=== PATIENT | male | born 1940 | race Caucasian/White ===

== ENCOUNTER → 2019-03-15 | Outpatient (CLI) | payer MEDICARE, OTHER ==
[~2019-03-15] MED LIST: REGADENOSON 0.4 MG/5 ML DISP.SYRIN. IV ONE
--- NOTE | 2019-03-15 12:52 | PCVCIMAG ---
APPROVED REPORT Study performed: 03/15/2019 08:27:33 EXAM: Comprehensive 2D, Doppler, and color-flow Echocardiogram Patient Location: Echo lab Room #: 2Status: routine BSA: 2.13 HR: 78 bpmBP: 148/88 mmHg Rhythm: NSR Other Information Study Quality: Good Risk Factors: Cardiac Risk Factors: HTN, Smoking history Indications CAD Fatigue S/P CABG 2D Dimensions IVSd: 8.64 (7-11mm)LVOT Diam: 21.55 (18-24mm) LVDd: 47.04 mm PWd: 9.78 (7-11mm)Ascending Ao: 39.06 (22-36mm) LVDs: 36.02 (25-40mm) Left Atrium: 39.09 (27-40mm) Aortic Root: 30.18 mm LV Single Plane 4CH: 58.48 % LV Single Plane 2CH: 59.89 % Biplane EF: 58.7 % Volumes Left Atrial Volume (Systole) Single Plane 4CH: 33.70 mLSingle Plane 2CH: 52.58 mL Biplane LA Volume: 44.00 mLLA ESV Index: 21.00 mL/m2 Aortic Valve AoV Peak Oswaldo.: 1.16 m/s AO Peak Gr.: 5.42 mmHgLVOT Max P.81 mmHg LVOT Max V: 0.98 m/s CHAR Vmax: 3.06 cm2 Mitral Valve E/A Ratio: 0.6 MV Decel. Time: 227.34 ms MV E Max Oswaldo.: 0.48 m/s MV A Oswaldo.: 0.80 m/s IVRT: 62.28 ms TDI E/Lateral E': 6.86E/Medial E': 6.86 Medial E' Oswaldo.: 0.07 m/s Lateral E' Oswaldo.: 0.07 m/s Pulmonary Valve PV Peak Oswaldo.: 1.03 m/sPV Peak Gr.: 4.23 mmHg Pulmonary Vein P Vein S: 0.61 m/sP Vein A: 0.82 m/s P Vein D: 0.29 m/sP Vein A Dur.: 103.8 msec P Vein S/D Ratio: 2.10 Tricuspid Valve TR Peak Oswaldo.: 2.63 m/s TR Peak Gr.: 27.61 mmHg TV Vmax: 0.61 m/sPA Pressure: 35.00 mmHg Left Ventricle The left ventricle is normal size. There is normal LV segmental wall motion. There is normal left ventricular wall thickness. Left ventricular systolic function is normal. The left ventricular ejection fraction is within the normal range. LVEF is 55-60%. Grade I - abnormal relaxation pattern. Right Ventricle Right ventricle is borderline dilated. The right ventricular systolic function is normal. Atria The left atrium size is normal. Right atrium is mildly dilated. Aortic Valve Aortic valve is trileaflet. Mild aortic valve sclerosis. No aortic regurgitation is present. There is no aortic valvular stenosis. Mitral Valve The mitral valve is normal in structure. There is no mitral valve regurgitation noted. No evidence of mitral valve stenosis. Tricuspid Valve The tricuspid valve is normal in structure. Trace to mild tricuspid regurgitation with a PA pressure of 35 mmHg. Mild pulmonary hypertension. Pulmonic Valve The pulmonary valve is normal in structure. Mild pulmonic regurgitation. Great Vessels The aortic root is normal in size. The ascending aorta is mildly dilated in size. Aortic arch is normal in caliber. IVC is normal in size and collapses >50% with inspiration. Pericardium There is no pericardial effusion. There is no pleural effusion. <Conclusion> The left ventricle is normal size. LVEF is 55-60%. Right ventricle is borderline dilated. Aortic valve is trileaflet. Mild aortic valve sclerosis. The mitral valve is normal in structure. The tricuspid valve is normal in structure. Trace to mild tricuspid regurgitation with a PA pressure of 35 mmHg. Mild pulmonary hypertension. The pulmonary valve is normal in structure. Mild pulmonic regurgitation. There is no pericardial effusion.
--- NOTE | 2019-03-17 11:41 | PCVCIMAG ---
APPROVED REPORT Imaging Protocol: Rest Tc-99m/Stress Tc-99m 1 day Study performed: 03/15/2019 10:00:06 Indication: CAD, Fatigue, Abn EKG Patient Location: Out-Patient Stress Nurse: Bailee Fitzpatrick RN, Lizzy Rodriguez RN IL Tech:Keith Kuhn ILTCB Ht: 6 ft 2 in Wt: 190 lbs BSA: 2.13 m2 HR: 74 bpm BP: 165/89 mmHg BMI: 24.3 Rhythm: Sinus Rhythm, Incomplete RBBB Medical History Medical History: Age, HTN, PVD, Family Hx of CAD, Former Smoker Medications: Pletal, Plavix, Proscar, Lisinopril, Simvastatin Allergies: No known drug allergies Previous Cardiac Procedures: CABG Pretest Chest Pain Characteristics: No chest pain Exercise History: Physically active Resting Data Rest SPECT myocardial perfusion imaging was performed in supine position 45 minutes following the intravenous injection of 11.4 mCi of Tc-99m Sestamibi. Time of rest injection: 914 Date: 03/15/2019 Administration Route: IV Administration Site: Left AC Pharmacologic Stress Pharmacologic stress test was performed by injecting Regadenoson 0.4 mg IV push over 10-15 seconds immediately followed by the intravenous injection of 36 mCi of Tc-99m Sestamibi. Time of stress injection: 0 Date: 03/15/2019 Administration Route: IV Administration Site: Left AC Gated Stress SPECT was performed 45 minutes after stress injection. The images were gated to evaluate regional wall motion and calculate left ventricular ejection fraction. Stress Test Details Stress Test: Pharmacologic stress testing performed using 0.4 mg of regadenoson per 5 mL given IV over 10 seconds. Reason for pharmacologic stress test: Weakness. HRMax Heart Rate (APMHR): 143 bpm Resting HR: 74 bpmTarget HR (85% APMHR): 121 bpm Max HR Achieved: 100 bpm % of APMHR: 69 Recovery HR: 96 bpm BP Resting BP: 165/89 mmHg Max BP: 165/77 mmHg Recovery BP: 166/78 mmHg ECG Resting ECG: Sinus Rhythm, Incomplete LBBB Stress ECG: Sinus Rhythm, Incomplete LBBB Arrhythmia: PVC's Recovery ECG: Sinus Rhythm, Incomplete LBBB Clinical Reason for Termination: Completed protocol Stress Symptoms: Dyspnea, Chest Tightness Exercise duration: min 55 sec Symptoms resolved with caffeine. Stress ECG Conclusion 1. adequate response to iv lexiscan 2. inadequate heart rate response for ecg diagnosis Study Data Post stress, the left ventricular ejection was 65%.. SSS: 1 SRS: 0 SDS: 1 TID = 1.02. Perfusion There is a medium area of moderately reduced uptake in the mid and apical segment of the anterior wall which is seen on the stress images and normalizes on the resting images. This area is hypokinetic and is most consistent with ischemia. Wall Motion mild distal anteroapical hypokinesis Nuclear Conclusion ECG Findings: non-diagnostic Clinical Findings: negative for ischemia Nuclear Findings: positive for ischemia will normalization of anteroapical defect Exercise Capacity: not assessed Left Ventricular Function: normal 1. intermediate to high risk study based on normalization of apical defect ( not typical location for LBBB ) 2. post stress lved 65% without wall motion anormalities Interpreted by: Emily Ramirez MD Electronically Approved: 03/17/2019 11:40:20 <Conclusion> 1. adequate response to iv lexiscan 2. inadequate heart rate response for ecg diagnosis
== END | disposition home or self-care (01) ==
LOC: PCVCIMAG 08:20
PROVIDERS: ATTEND Internal Medicine
DX: I08.8 Other rheumatic multiple valve diseases (principal); I25.10 Atherosclerotic heart disease of native coronary artery without angina pectoris; R53.83 Other fatigue; I27.0 Primary pulmonary hypertension; Z95.1 Presence of aortocoronary bypass graft; Z86.79 Personal history of other diseases of the circulatory system
CPT/HCPCS: 78452; 93017; 93306; A9500; J2785

== ENCOUNTER → 2019-03-22 | Outpatient (CLI) | payer MEDICARE, OTHER | END | disposition home or self-care (01) | LOC: PCVCCLINIC 11:30 | PROVIDERS: ATTEND Internal Medicine | DX: E78.5 Hyperlipidemia, unspecified (principal); I73.9 Peripheral vascular disease, unspecified; R53.83 Other fatigue; I11.9 Hypertensive heart disease without heart failure; Z88.0 Allergy status to penicillin; Z79.82 Long term (current) use of aspirin; Z79.899 Other long term (current) drug therapy; Z87.891 Personal history of nicotine dependence | CPT/HCPCS: G0463 ==